=== PATIENT | female | born 1965 | race Native Hawaiian/Other Pacific Islander ===

== ENCOUNTER 2016-12-22 16:06 | Outpatient (CLI) | payer OTHER | END 2016-12-22 19:46 | disposition home or self-care (01) | LOC: RAD 16:06 | DX: M54.42 Lumbago with sciatica, left side (principal); M54.41 Lumbago with sciatica, right side ==

== ENCOUNTER 2017-01-23 19:21 | Emergency (ER) | payer OTHER ==
[~2017-01-23] VITALS: Ht 154.9 cm; Wt 87.5 kg
[2017-01-23 20:00] LABS: PLATELET COUNT 176 K/uL (152-353)
[2017-01-23 20:10] LABS: POTASSIUM 3.4 mmol/L (3.6-5.2); SODIUM 137 mmol/L (136-145)
[2017-01-23 21:11] VITALS: BP 156/85; TEMP 98.4
== END 2017-01-23 21:12 | disposition home or self-care (01) ==
LOC: ED 19:21
DX: K21.9 Gastro-esophageal reflux disease without esophagitis (principal); R10.13 Epigastric pain
CPT/HCPCS: 36415; 80053; 82150; 83690; 85027; 86318; 99283

== ENCOUNTER 2017-03-03 09:29 | Outpatient (CLI) | payer OTHER | END 2017-03-03 19:26 | disposition home or self-care (01) | LOC: MAMMO 09:29 | DX: Z12.31 Encounter for screening mammogram for malignant neoplasm of breast (principal) | CPT/HCPCS: G0202-TC ==

== ENCOUNTER 2017-03-18 12:52 | Outpatient (CLI) | payer OTHER | END 2017-03-18 19:19 | disposition home or self-care (01) | LOC: MAMMO 12:52 | DX: R92.1 Mammographic calcification found on diagnostic imaging of breast (principal) | CPT/HCPCS: G0206-TC ==

== ENCOUNTER 2017-04-03 13:00 | Emergency (ER) | payer OTHER ==
[~2017-04-03] VITALS: Ht 154.9 cm; Wt 86.2 kg
[2017-04-03] MEDS ORDERED: AMLO2.5T PO (13:21)
[2017-04-03] MEDS ORDERED: CLARITIN10 M1 PO (13:22)
[2017-04-03 13:56] VITALS: BP 175/72; TEMP 98.2
== END 2017-04-03 14:05 | disposition home or self-care (01) ==
LOC: ED 13:00
DX: F41.1 Generalized anxiety disorder (principal)
CPT/HCPCS: 93005; 99282

== ENCOUNTER 2017-04-10 17:36 | Emergency (ER) | payer OTHER ==
[~2017-04-10] VITALS: Ht 154.9 cm; Wt 87.1 kg
[~2017-04-10 17:36] MED LIST: AMLO2.5T PO; CLARITIN10 M1 PO
[2017-04-10 17:45] VITALS: TEMP 98.4
[2017-04-10 18:25] VITALS: BP 154/86
== END 2017-04-10 18:33 | disposition home or self-care (01) ==
LOC: ED 17:36
DX: F41.9 Anxiety disorder, unspecified (principal); K21.9 Gastro-esophageal reflux disease without esophagitis
CPT/HCPCS: 99281

== ENCOUNTER 2017-04-12 10:11 | Outpatient (CLI) | payer OTHER ==
[2017-04-12 10:39] LABS: PLATELET COUNT 214 K/uL (152-353)
[2017-04-12 11:42] LABS: POTASSIUM 3.6 mmol/L (3.6-5.2); SODIUM 137 mmol/L (136-145)
== END 2017-04-12 11:15 | disposition home or self-care (01) ==
LOC: LABW 10:11
PROVIDERS: Physician Assistant
DX: I10 Essential (primary) hypertension (principal); R53.83 Other fatigue
CPT/HCPCS: 36415; 80053; 80061; 83036; 84439; 84443; 85027

== ENCOUNTER 2020-01-29 10:13 | Outpatient (CLI) | payer OTHER | END 2020-01-29 22:38 | disposition home or self-care (01) | LOC: MAMMO 10:13 | DX: Z12.31 Encounter for screening mammogram for malignant neoplasm of breast (principal) ==

== ENCOUNTER 2021-04-03 13:38 | Outpatient (CLI) | payer OTHER | END 2021-04-03 23:58 | disposition home or self-care (01) | LOC: MAMMO 13:38 | PROVIDERS: ATTEND Nurse Practitioner Family | DX: Z12.31 Encounter for screening mammogram for malignant neoplasm of breast (principal) ==